=== PATIENT | male | born 1990 | race Caucasian/White ===

== ENCOUNTER 2019-11-12 20:25 | Emergency (ER) | payer SELFPAY ==
[~2019-11-12] VITALS: Ht 154.9 cm; Wt 73.9 kg
[~2019-11-12 20:25] MED LIST: CLINDAMYCIN HC300 MG PO; IBU-8800 MG PO; MOTRIN800 MG PO; Motrin,Rufen800 MG PO; ZOFRAN ODT4 MG SL
[2019-11-12] MEDS ORDERED: AUGMENTIN 875-875 MG PO (21:01)
== END 2019-11-12 21:07 | disposition home or self-care (01) ==
LOC: ED 20:25
DX: K02.9 Dental caries, unspecified (principal)